=== PATIENT | male | born 1995 | race Caucasian/White ===

== ENCOUNTER 2017-11-17 17:52 | Emergency (ER) | payer OTHER ==
[~2017-11-17] VITALS: Ht 185.4 cm; Wt 113.6 kg
[2017-11-17 17:55] VITALS: TEMP 99.6
[2017-11-17 19:07] VITALS: BP 129/75
[2017-11-17] MEDS ORDERED: NORCO 325 MG-51 TAB PO (19:51)
[2017-11-17] MEDS ORDERED: CRUTCHES MC (20:34)
[2017-11-17 20:40] VITALS: PULSE 90
== END 2017-11-17 20:40 | disposition home or self-care (01) ==
LOC: COL.ER 17:52
DX: S93.04XA Dislocation of right ankle joint, initial encounter (principal); X50.0XXA Overexertion from strenuous movement or load, initial encounter; Y92.39 Other specified sports and athletic area as the place of occurrence of the external cause; Y93.67 Activity, basketball
CPT/HCPCS: J1170; J2405; J2704; J3010; J7030; Q4045

== ENCOUNTER 2018-08-03 15:00 | Emergency (ER) | payer OTHER ==
[~2018-08-03] VITALS: Ht 188 cm; Wt 113.6 kg
[~2018-08-03 15:00] MED LIST: CRUTCHES MC; NORCO 325 MG-51 TAB PO
[2018-08-03 15:02] VITALS: TEMP 99.2
[2018-08-03 16:45] VITALS: BP 132/84; PULSE 77
[2018-08-03] MEDS ORDERED: NORCO 325 MG-51 TAB PO (16:46)
== END 2018-08-03 17:04 | disposition home or self-care (01) ==
LOC: COL.ER 15:00
DX: S93.04XA Dislocation of right ankle joint, initial encounter (principal); X50.0XXA Overexertion from strenuous movement or load, initial encounter; Y93.67 Activity, basketball
CPT/HCPCS: J2405; J2704; J3010; J7030; Q4045

== ENCOUNTER 2020-02-10 14:18 | Emergency (ER) | payer OTHER ==
[~2020-02-10] VITALS: Ht 188 cm; Wt 113.6 kg
[2020-02-10 14:24] VITALS: BP 137/91; TEMP 97
[2020-02-10 14:57] LABS: COLLECTION METHOD CLEAN CATCH
[2020-02-10 15:06] LABS: MUCOUS Present /lpf; PH 8 (5-8); SQUAMOUS EPITHELIAL None Seen /hpf; URINE APPEARANCE Hazy; URINE BACTERIA None Seen /hpf; URINE BILIRUBIN Negative (NEGATIVE); URINE BLOOD Negative (NEGATIVE); URINE COLOR Yellow; URINE GLUCOSE Negative (NEGATIVE); URINE KETONE Negative (NEGATIVE); URINE LEUKOCYTE ESTERASE Negative (NEGATIVE); URINE NITRATE Negative (NEGATIVE); URINE PROTEIN(semi-quant) 1+ (NEGATIVE); URINE RBC 0-2 /hpf; URINE UROBILINOGEN Negative (NEGATIVE)
[2020-02-10 16:29] VITALS: PULSE 82
== END 2020-02-10 16:30 | disposition home or self-care (01) ==
LOC: COL.ER 14:18
PROVIDERS: Emergency Medicine
DX: I86.1 Scrotal varices (principal); Z79.1 Long term (current) use of non-steroidal anti-inflammatories (NSAID)